=== PATIENT | male | born 1975 | race Two or more races ===

== ENCOUNTER 2023-08-07 15:12 | Emergency (ER) | payer BC ==
[~2023-08-07] VITALS: Ht 180.3 cm; Wt 90.7 kg
[2023-08-07 22:00] VITALS: BP 145/80; O2SAT 100
== END 2023-08-07 22:00 | disposition home or self-care (01) ==
LOC: ER 15:20
DX: M16.12 Unilateral primary osteoarthritis, left hip (principal); I70.262 Atherosclerosis of native arteries of extremities with gangrene, left leg
CPT/HCPCS: 73521; A4606; A4663